=== PATIENT | male | born 1945 | race Caucasian/White ===

== ENCOUNTER 2017-04-12 00:55 | Emergency (ER) | payer OTHER ==
[2017-04-12] MEDS ORDERED: ASPIRIN 81 MG CHEW TAB ONE (00:58)
[2017-04-12] MEDS ORDERED: NITROGLYCERIN 0.4 MG TAB.SUBL SL ONE (00:58)
[2017-04-12] MEDS ORDERED: NITROGLYCERIN 0.4 MG TAB.SUBL SL PRN (01:00)
[2017-04-12] MEDS ORDERED: ASPIRIN 81 MG CHEW TAB PO ONE ×2 (01:07→06:56)
[2017-04-12 01:16] LABS: BASOPHILS % 1.4 (0.0-1.5); EOSINOPHILS % 4.3 % (0.0-6.8); MEAN CORPUSCULAR HEMOGLOBIN 31.6 pg (28.0-34.0); MEAN CORPUSCULAR VOLUME 91.8 fl (80.0-100.0); NEUTROPHILS # 2.4 # k/uL (1.4-7.7)
[2017-04-12 01:30] LABS: eGFR (African) > 60; eGFR (Non-African) > 60
[2017-04-12] MEDS ORDERED: IPRATROPIUM/ALBUTEROL SULFATE 3 ML AMPUL.NEB NEB ONE (01:53)
[2017-04-12] MEDS ORDERED: KETOROLAC TROMETHAMINE 30 MG/1ML VIAL IVP ONE (01:54)
--- NOTE | 2017-04-12 01:57 | ED Physician Documentation ---
Chest Pain - HISTORIAN Historian: patient - HPI Stated Complaint: chest pain Chief Complaint: Chest Pain Onset: minutes Timing: sudden onset Last known Well Date: 04/11/17 Last Known Well Time: 20:00 Context: rest (sitting on couch) Severity: moderate (7-8/10) Quality: stabbing Chest Pain Radiation: no radiation Chest Pain Signs/Symptoms: denies: nausea, vomiting, diaphoresis Worsened By: nothing Relieved By: nothing Further Comments: yes (71 year old male patient presents with c/o sudden onset chest pain. Patient states he was sitting on the couch when he began having chest pain and wheezing. States he attempted to take a breathing treatment, but pain became worse. Came to ER. On arrival pateint extremely anxious. BP 169/103) - ROS CONST: none (denies) MS/LYMPH: none GI/: none EYES/ENT: none SKIN/ENDO: none NEURO/PSYCH: none - PAST HX [place] risk factors: hypertension, diabetes Type 2, hyperlipidemia DVT/PE Risk Factors: none TAD/AAA risk factors: none Neuro deficit: none GI disease: none Lung disease: COPD Surgeries/Procedures: none Allergies/Adverse Reactions: Allergies Allergy/AdvReac Type Severity Reaction Status Date / Time No Known Drug Allergies Allergy Verified 04/12/17 01:35 Home Medications: Ambulatory Orders Medication Instructions Recorded Ipratropium/Albuterol Sulfate 3 ml NEB QID PRN #30 ampul.neb 07/27/15 [Duoneb] - SOCIAL HX Smoking History: cigarettes - FAMILY HX Family HX: denies: none - VITAL SIGNS Vital Signs: Vital Signs Temp Pulse Resp BP Pulse Ox 98.7 F 88 18 169/103 93 04/12/17 00:55 04/12/17 01:07 04/12/17 00:55 04/12/17 00:55 04/12/17 01:07 - REVIEWED ASSESSMENTS Nursing Assessment Reviewed: Yes Vitals Reviewed: Yes Progress - Progress Progress: 1 SL nitro given for CP and htn. Pain relieved with improved BP and 1 SL nitroglycerin. 0200 Recommended 23 observation admission for r/o KS. Patient refused admission. Risk and benefits explained. Patient agreed to stay in ER on monitor and repeat lab at 0600. 0630 Trop .06, ambulated in hallway - no chest pain, no SOB. Patient continues to refuse to stay for observation. States he has [address] Alonso. Informed consent to refuse completed. Medical release completed, will fax copy to Dr Alonso's office. - EKG/XRAY/CT EKG: rhythm (SR, rate 85) ED Results Lab/Radiology - Lab Results Lab Results: Lab Results 04/12/17 04/12/17 04/12/17 01:12 01:12 01:11 WBC 4.50 K/ul K/ul (4.00-12.00) RBC 5.60 M/ul H M/ul (3.90-5.20) Hgb 17.7 g/dL g/dL (12.0-18.0) Hct 51.4 % % (37.0-53.0) MCV 91.8 fl fl (80.0-100.0) MCH 31.6 pg pg (28.0-34.0) MCHC 34.4 g/dL g/dL (30.0-36.0) RDW 13.5 % % (11.3-14.3) Plt Count 150 K/mm3 K/mm3 (130-400) Neut % (Auto) 53.9 % % (39.0-79.0) Lymph % (Auto) 28.7 % % (16.0-50.0) [place] % (Auto) 9.0 % % (0.0-11.0) Eos % (Auto) 4.3 % % (0.0-6.8) Baso % (Auto) 1.4 (0.0-1.5) Neut # (Auto) 2.4 # k/uL # k/uL (1.4-7.7) Lymph # (Auto) 1.3 # k/uL # k/uL (0.6-4.0) [place] # (Auto) 0.4 # k/uL # k/uL (0.0-0.9) Eos # (Auto) 0.2 # k/uL # k/uL (0.0-0.6) Baso # (Auto) 0.1 # k/uL # k/uL (0.0-0.5) Reactive Lymphs % 2.7 % % (0.0-5.0) Reactive Lymphs # 0.1 # k/uL # k/uL (0.0-0.8) Sodium 140 mmol/L mmol/L (136-145) Potassium 4.1 mmol/L mmol/L (3.5-5.0) Chloride 105 mmol/L mmol/L (98-110) Carbon Dioxide 32 mmol/L mmol/L (20-32) BUN 18 mg/dL mg/dL (10-26) Creatinine 1.0 mg/dL mg/dL (0.4-1.5) Estimated Creat Clear 103 Est GFR ( Amer) > 60 (60 - ) Est GFR (Non-Af Amer) > 60 (60 - ) Glucose 149 mg/dL H mg/dL (70-99) Calcium 9.6 mg/dL mg/dL (8.5-10.5) Total Bilirubin 1.0 mg/dL mg/dL (0.2-1.2) AST 18 U/L U/L (0-41) ALT 18 U/L U/L (0-45) Alkaline Phosphatase 68 U/L U/L (46-116) Creatine Kinase 184 U/L U/L (0-225) Troponin I < 0.03 ng/mL L ng/mL (0.03-0.06) Total Protein 7.2 g/dL g/dL (6.0-8.5) Albumin 4.6 g/dL g/dL (3.0-5.5) - Orders Orders: ED Orders Category Date Time Status Continuous EKG monitoring Q30M Care 04/12/17 01:07 Active Continuous Pulse Oximetry Q30M Care 04/12/17 01:[address] IV Lock 1T Care 04/12/17 01:00 Active CHEST 1 VIEW [RAD] Stat Exams 04/12/17 01:07 Taken CBC/PLATELET/DIFF Routine Lab 04/12/17 01:12 Completed CMP Routine Lab 04/12/17 01:12 Completed CREATINE KINASE Routine Lab 04/12/17 01:12 Completed TROPONIN I (cTnI) Stat Lab 04/12/17 01:11 Completed Aspirin Med 04/12/17 00:58 Discontinued 324 mg .ROUTE .STK-MED ONE Aspirin Med 04/12/17 01:07 Discontinued 324 mg PO NOW ONE Ipratropium/Albuterol Sulfate [Duoneb] Med 04/12/17 01:53 Once 3 ml NEB NOW ONE Ketorolac Tromethamine [Toradol] Med 04/12/17 01:54 Once 30 mg IVP NOW ONE Nitroglycerin [Nitroquick] Med 04/12/17 00:58 Discontinued 0.4 mg SL .STK-MED ONE Nitroglycerin [Nitroquick] Med 04/12/17 01:00 Ordered 0.4 mg SL 1T PRN Oxygen Daily Oxygen 04/12/17 01:15 Ordered EKG WITH COMPARISON Stat Ther 04/12/17 01:07 Ordered Chest Pain Physical Exam - EXAM General Appearance: anxious EENT: eye inspection normal, NOLBERTO Respiratory: no resp. distress, chest non-tender, wheezes (BBS expiratory) CVS: reg. 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 Keep your appointment with Dr Alonso. Start aspirin 81mg daily. Home Medications: Ambulatory Orders Ipratropium/Albuterol Sulfate [Duoneb] 3 ml NEB QID PRN #30 ampul.neb 07/27/15 Condition: Stable Disposition: 01 HOME, SELF-CARE Decision to Admit: NO Decision Time: 06:49
--- NOTE | 2017-04-12 06:41 | Diagnostic Imaging Report ---
SCOTT HOPSON (REPAIR MILLER) - ER [facility] [address] [address] Report Submission Date: Apr 12, 2017 1:39:17 AM CDT Patient Study Name: SPRING LAIRD Date: Apr 12, 2017 1:14:01 AM CDT Modality Type: CR Gender: M Description: CHEST : 47 Institution: [facility] Physician: SCOTT HOPSON (SALINA) - ER Portable chest History: Chest pain Findings: The lungs are clear. No pleural effusions are observed. Heart size and pulmonary vascularity are normal. Osseous structures are unremarkable. Impression: Normal. Electronically signed on Apr 12, 2017 1:39:17 AM CDT by: Esequiel BENNETT
[2017-04-12 07:27] VITALS: BP 135/68
== END 2017-04-12 07:00 | disposition home or self-care (01) ==
LOC: ED 00:55
DX: R06.2 Wheezing (principal); R07.9 Chest pain, unspecified
CPT/HCPCS: 71010; 80053; 82550; 84484; 85025; 93005; J1885; 96374; 99284; S1016

== ENCOUNTER 2018-03-14 12:57 | Outpatient (CLI) | payer OTHER | END 2018-03-14 13:04 | LOC: CARD 12:57 | PROVIDERS: ATTEND Internal Medicine Cardiovascular Disease | DX: I77.810 Thoracic aortic ectasia (principal); I10 Essential (primary) hypertension; E11.9 Type 2 diabetes mellitus without complications; Z72.0 Tobacco use; E66.9 Obesity, unspecified; R94.39 Abnormal result of other cardiovascular function study; R79.89 Other specified abnormal findings of blood chemistry | CPT/HCPCS: G0463 ==

== ENCOUNTER 2018-09-13 05:53 | Emergency (ER) | payer OTHER ==
--- NOTE | 2018-09-13 06:57 | ED Physician Documentation ---
General Adult - HISTORIAN Historian: patient, spouse - HPI Stated Complaint: Elevated Blood Pressure at home Chief Complaint: General Adult Additional Information: pt watching tv at 0530 am noted 'JUST FELT BAD INSIDE". TOOK HIS BLOOD PRESSURE FOUNF 177/108. OFF LISINOPRIL 3-4 MO AGO. 'just didnt like to take meds' HE TAKES HIS BP ABOUT DAILY. 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 BP BETTER NOW AND FEELS BACK TO NORMAL Timing: better Severity: mild, moderate Further Comments: no - ROS CONST: no problems EYES/ENT: denies: problems with vision, sore throat CVS/RESP: none MS/SKIN/LYMPH: none NEURO/PSYCH: other (HAD SIMILAR EPISODE SEV MONTHS AGO FOUND HTN BUT BP ALWAYS CHECKED GOOD-TAKES DAILY-SO DC'D MEDS). denies: headache, fainting, dizziness, tingling, numbness, difficulty with speech, anxiety, depression - PAST HX Past History: hypertension Other History: none Surgeries/Procedures: none Allergies/Adverse Reactions: Allergies Allergy/AdvReac Type Severity Reaction Status Date / Time No Known Drug Allergies Allergy Verified 09/13/18 06:18 Home Medications: Ambulatory Orders Medication Instructions Recorded Metformin HCl [Metformin HCl ER] 1,000 mg PO BID 09/13/18 - SOCIAL HX Smoking History: greater than 1 pack/day Alcohol Use: occasionally Drug Use: none - FAMILY HX Family History: No - VITAL SIGNS Vital Signs: Vital Signs Temp Pulse Resp BP Pulse Ox 97.8 F 84 18 157/90 95 09/13/18 05:54 09/13/18 05:54 09/13/18 05:54 09/13/18 05:54 09/13/18 05:54 - REVIEWED ASSESSMENTS Nursing Assessment Reviewed: Yes Vitals Reviewed: Yes ED Results Lab/Radiology - Orders Orders: ED Orders Category Date Time Status EKG WITH COMPARISON Stat Ther 09/13/18 Ordered General Adult Physical Exam - PHYSICAL EXAM GENERAL APPEARANCE: FAST EXAM TOTALLY NORMAL EENT: eye inspection normal NECK: normal inspection, supple RESPIRATORY: no resp distress, chest non-tender, breath sounds normal CVS: reg rate & rhythm, heart sounds normal ABDOMEN: soft, non-tender BACK: normal inspection, no CVA tenderness, CVA tenderness (R) SKIN: warm/dry, normal color. No: cyanosis, diaphoresis, jaundice EXTREMITIES: non-tender, normal range of motion, no evidence of injury NEURO: oriented X3, motor nml, sensation nml, mood/affect nml Discharge Clincal Impression: UNCONTROLLED HTN Referrals: Karma Alonso MD [Primary Care Provider] - 2 Days Comments: WILL RESUME LISINOPRIL ANSD CHECK BP VERY OFTEN Condition: Good Disposition: 01 HOME, SELF-CARE Decision to Admit: NO Decision Time: 07:14
[2018-09-13 06:58] VITALS: BP 143/82
== END 2018-09-13 06:50 | disposition home or self-care (01) ==
LOC: ED 05:53
DX: I10 Essential (primary) hypertension (principal); Z72.0 Tobacco use
CPT/HCPCS: 99282; 99283

== ENCOUNTER 2018-10-20 13:02 | Emergency (ER) | payer OTHER ==
[2018-10-20] MEDS ORDERED: IPRATROPIUM/ALBUTEROL SULFATE 3 ML AMPUL.NEB NEB STA (13:16)
[2018-10-20] MEDS ORDERED: methylPREDNISolone SOD SUCC 125 MG/2 ML VIAL IVP ONE (13:16)
[2018-10-20 13:45] LABS: BASOPHILS % 3.9 (0.0-1.5); EOSINOPHILS % 1.6 % (0.0-6.8); MEAN CORPUSCULAR HEMOGLOBIN 32.3 pg (28.0-34.0); MONOCYTES % 6.9 % (0.0-11.0)
[2018-10-20 13:46] LABS: NEUTROPHILS # 9.6 # k/uL (1.4-7.7)
[2018-10-20] MEDS ORDERED: ALBUTEROL SULFATE 2.5 MG/3 ML AMPUL.NEB NEB ONE (13:46)
[2018-10-20 13:51] LABS: eGFR (Non-African) > 60
[2018-10-20] MEDS ORDERED: 0.9 % SODIUM CHLORIDE 1,000 ML IV ONE (14:22)
--- NOTE | 2018-10-20 14:40 | ED Physician Documentation ---
Dyspnea - HISTORIAN Historian: patient - HPI Stated Complaint: Shortness of breath Chief Complaint: Dyspnea Further Comments: yes (73 year old male patient presents with complaint of dyspnea since around 1100 this morning. States he used all of his medications this morning. Worse with exerction; was seen by his PCP yesterday - states he felt fine at that time.) - ROS CONST: no problems EYES/ENT: none GI/: none NEURO/PSYCH: denies: headache MS/SKIN/LYMPH: none - PAST HX Lung Disease: asthma, COPD PE Risk Factors: hypertension Other History: diabetes Type 2 Allergies/Adverse Reactions: Allergies Allergy/AdvReac Type Severity Reaction Status Date / Time No Known Drug Allergies Allergy Verified 09/13/18 06:18 Home Medications: Ambulatory Orders Medication Instructions Recorded Metformin HCl [Metformin HCl ER] 1,000 mg PO BID 09/13/18 - SOCIAL HX Smoking History: cigarettes - FAMILY HX Family History: other. denies: none - VITAL SIGNS Vital Signs: Vital Signs Temp Pulse Resp BP Pulse Ox 98.5 F 95 H 26 H 142/75 89 L 10/20/18 13:05 10/20/18 14:15 10/20/18 14:15 10/20/18 14:15 10/20/18 14:15 - REVIEWED ASSESSMENTS Nursing Assessment Reviewed: Yes Vitals Reviewed: Yes Progress - Progress Progress: Wheezing increased after duoneb - additional albuterol neb given. RA Sat 87- 88%; placed on 3L, sats up to 92-93% 1515 O2 removed - will discharge home if Sats remain >91% 1520 RA Sat 88-89%; O2 replaced. Discussed admission and transfer options with patient, no bed available at our facility. Patient would like transfer to [place]. 1535 Call to [place]. [address] Dominguez at [place]; awaiting transfer. ED Results Lab/Radiology - Lab Results Lab Results: Lab Results 10/20/18 10/20/18 13:30 13:30 WBC 12.50 K/ul H K/ul (4.00-12.00) RBC 5.61 M/ul H M/ul (3.90-5.20) Hgb 18.1 g/dL H g/dL (12.0-18.0) Hct 54.7 % H % (37.0-53.0) MCV 98.0 fl fl (80.0-100.0) MCH 32.3 pg pg (28.0-34.0) MCHC 33.1 g/dL g/dL (30.0-36.0) RDW 12.2 % % (11.3-14.3) Plt Count 139 K/mm3 K/mm3 (130-400) Neut % (Auto) 76.4 % % (39.0-79.0) Lymph % (Auto) 11.2 % L % (16.0-50.0) [place] % (Auto) 6.9 % % (0.0-11.0) Eos % (Auto) 1.6 % % (0.0-6.8) Baso % (Auto) 3.9 H (0.0-1.5) Neut # (Auto) 9.6 # k/uL H # k/uL (1.4-7.7) Lymph # (Auto) 1.4 # k/uL # k/uL (0.6-4.0) [place] # (Auto) 0.9 # k/uL # k/uL (0.0-0.9) Eos # (Auto) 0.2 # k/uL # k/uL (0.0-0.6) Baso # (Auto) 0.5 # k/uL # k/uL (0.0-0.5) Sodium 141 mmol/L mmol/L (136-145) Potassium 4.5 mmol/L mmol/L (3.5-5.1) Chloride 102 mmol/L mmol/L (98-107) Carbon Dioxide 29 mmol/L mmol/L (22-30) BUN 27 mg/dL H mg/dL (9-20) Creatinine 0.97 mg/dL mg/dL (0.66-1.25) Estimated Creat Clear 102 Est GFR ( Amer) > 60 (60 - ) Est GFR (Non-Af Amer) > 60 (60 - ) Glucose 164 mg/dL H mg/dL (74-106) Calcium 8.8 mg/dL mg/dL (8.4-10.2) Total Bilirubin 2.1 mg/dL H mg/dL (0.2-1.3) AST 35 U/L U/L (15-46) ALT 24 U/L U/L (13-69) Alkaline Phosphatase 56 U/L U/L (38-126) Total Protein 7.1 g/dL g/dL (6.3-8.2) Albumin 4.4 g/dL g/dL (3.5-5.0) - Orders Orders: ED Orders Category Date Time Status Continuous EKG monitoring Q30M Care 10/20/18 13:16 Active Continuous Pulse Oximetry Q30M Care 10/20/18 13:[address] IV Lock 1T Care 10/20/18 13:16 Active CHEST 2VIEW [RAD] Stat Exams 10/20/18 13:16 Taken CBC/PLATELET/DIFF Stat Lab 10/20/18 13:30 Completed CMP Stat Lab 10/20/18 13:30 Completed INFLUENZA A&B Stat Lab 10/20/18 13:45 ORD 0.9 % Sodium Chloride [Normal Saline] 1,000 ml Med 10/20/18 14:22 Discontinued IV NOW Albuterol Sulfate [Ventolin Soln] Med 10/20/18 13:46 Discontinued 2.5 mg NEB NOW ONE Ipratropium/Albuterol Sulfate [Duoneb] Med 10/20/18 13:16 Discontinued 3 ml NEB STAT STA methylPREDNISolone SOD SUCC [Solu-MEDROL] Med 10/20/18 13:16 Discontinued 125 mg IVP NOW ONE Dyspnea Physical Exam - EXAM General Appearance: no acute distress, alert EENT: eye inspection normal, ENT inspection normal, pharynx normal, no signs of dehydration, NOLBERTO, no nystagmus, TM's nml Respiratory: no resp. distress, no pain on inspiration, speaks full sentences, wheezes (bilateral, expiratory), other (tachypnea RR 32) CVS: reg. 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
[2018-10-20 17:38] VITALS: BP 143/83
--- NOTE | 2018-10-21 04:05 | Diagnostic Imaging Report ---
SCOTT GUTIERREZ (CONCRETE ENGINEERING TECHNICIAN) - ER [facility] [address] [address] Report Submission Date: Oct 20, 2018 3:00:25 PM IMPLEMENTATION LEAD Patient Study Name: SPRING LAIRD Date: Oct 20, 2018 1:24:34 PM IMPLEMENTATION LEAD Modality Type: DX Gender: M Description: CHEST 2VIEW : 47 Institution: [facility] Physician: SCOTT GUTIERREZ (CONCRETE ENGINEERING TECHNICIAN) - ER PA and lateral chest History: Short of breath PA and lateral chest dated October 20, 2018 is without prior radiographs for comparison. Heart size is normal. There is mild aortic atherosclerosis. Pulmonary vascularity is normal. No confluent infiltrate or pleural effusion is noted. Impression: No active disease. Electronically signed on Oct 20, 2018 3:00:25 PM IMPLEMENTATION LEAD by: Marija BENNETT
== END 2018-10-20 17:20 | disposition short-term general hospital (02) ==
LOC: ED 13:02
DX: J44.1 Chronic obstructive pulmonary disease with (acute) exacerbation (principal); Z72.0 Tobacco use
CPT/HCPCS: 36415; 71046; 80053; 85025; 87400; 94640; 96374; 99285; J2930; J7030; S1016

== ENCOUNTER 2019-08-23 00:42 | Observation (INO) | payer OTHER ==
[2019-08-23] MEDS ORDERED: methylPREDNISolone SOD SUCC 125 MG/2 ML VIAL IV ONE (00:54)
[2019-08-23] MEDS ORDERED: dilTIAZem HCL 25 MG/5 ML VIAL IVP ONE (00:54)
--- NOTE | 2019-08-23 01:07 | ED Physician Documentation ---
Palpitations - HISTORIAN Historian: patient - HPI Stated Complaint: heart palpitations, wheezing Chief Complaint: Palpitations Additional Information: Patient presents to ED with an 8 hour history of heart palpitations. Patient tawanda mullins he was diagnosed with atrial fibrillation about six months ago. He was prescribed Cardizem CD 120mg daily. He has taken 2 doses in the past 8 hours to try to get his heart rate to go down. He took his heart rate at home and it was 152 bpm. Patient reports a history of COPD also and states he has been wheezing more today. SaO2 upon arrival 90% on room air. He reports more wheezing that usual the past several days. Onset: hours (8) Timing: gradual onset Duration: intermittent episodes Quality: fast, pounding heart beat Associated Symptoms: denies: chills, fever, chest pain, productive cough Worsened by:: exertion - ROS CONST: no problems RESP: denies: productive cough GI/: denies: nausea MS/SKIN/LYMPH: denies: ankle swelling, calf pain EYES/ENT: none NEURO/PSYCH: denies: headache - SOCIAL HX Smoking History: cigarettes, greater than 1 pack/day Alcohol Use: none Drug Use: none - FAMILY HX Family History: none - PAST HX Cardiac Disease: denies: CAD Cardiac Rhythm Problems: A-fib Other History: COPD Surgeries/Procedures: none Allergies/Adverse Reactions: Allergies Allergy/AdvReac Type Severity Reaction Status Date / Time No Known Drug Allergies Allergy Verified 08/23/19 01:29 Home Medications: Ambulatory Orders Medication Instructions Recorded Metformin HCl [Metformin HCl ER] 1,000 mg PO BID 09/13/18 - VITAL SIGNS Vital Signs: Vital Signs Temp Pulse Resp BP Pulse Ox 99.3 F 139 H 20 136/83 94 08/23/19 00:42 08/23/19 02:30 08/23/19 00:42 08/23/19 00:42 08/23/19 02:30 - REVIEWED ASSESSMENTS Nursing Assessment Reviewed: Yes Vitals Reviewed: Yes Progress - Progress Progress: 0146 Patient reports having alcoholic beverages tonight. He reports over a pint of whiskey. 0300 Patient HR improving with IVF. Will admit for further hydration and monitor HR. I suspect his HR will normalize with hydration. - EKG/XRAY/CT Comments: 047 Afib w/RVR 149 bpm ED Results Lab/Radiology - Lab Results Lab Results: Lab Results 08/23/19 08/23/19 08/23/19 01:50 01:11 01:11 WBC RBC Hgb Hct MCV MCH MCHC RDW Plt Count Seg Neutrophils % Lymphocytes % Monocytes % Eosinophils % Basophils % Plt Morphology Comment RBC Morph Comment Sodium 143 mmol/L mmol/L (137-145) Potassium 4.2 mmol/L mmol/L (3.5-5.1) Chloride 112 mmol/L H mmol/L (98-107) Carbon Dioxide 19 mmol/L L mmol/L (22-30) Anion Gap 16.2 BUN 38 mg/dL H mg/dL (9-20) Creatinine 1.21 mg/dL mg/dL (0.66-1.25) Est GFR ( Amer) > 60 (60 - ) Est GFR (Non-Af Amer) > 60 (60 - ) Glucose 143 mg/dL H mg/dL (74-106) Calcium 8.7 mg/dL mg/dL (8.4-10.2) Total Bilirubin 0.3 mg/dL mg/dL (0.2-1.3) AST 35 U/L U/L (15-46) ALT 24 U/L U/L (4-50) Alkaline Phosphatase 59 U/L U/L (38-126) Troponin I 0.029 ng/mL ng/mL (0.012-0.034) NT-Pro-B Natriuret Pep 215.3 pg/mL H pg/mL (15.0-125.5) Total Protein 6.8 g/dL g/dL (6.3-8.2) Albumin 4.1 g/dL g/dL (3.5-5.0) Ethyl Alcohol 39.4 mg/dL H mg/dL (0.0-10.0) 08/23/19 01:11 WBC 4.60 K/ul K/ul (4.00-12.00) RBC 4.42 M/ul M/ul (3.90-5.20) Hgb 14.2 g/dL g/dL (12.0-18.0) Hct 40.7 % % (37.0-53.0) MCV 92.0 fl fl (80.0-100.0) MCH 32.0 pg pg (28.0-34.0) MCHC 34.8 g/dL g/dL (30.0-36.0) RDW 11.1 % L % (11.3-14.3) Plt Count 159 K/mm3 K/mm3 (130-400) Seg Neutrophils % 58 % % (39-79) Lymphocytes % 31 % % (16-50) Monocytes % 7 % % (0-11) Eosinophils % 4 % % (0-7) Basophils % 1 % % (0-2) Plt Morphology Comment Normal (NORMAL) RBC Morph Comment Normal (NORMAL) Sodium Potassium Chloride Carbon Dioxide Anion Gap BUN Creatinine Est GFR ( Amer) Est GFR (Non-Af Amer) Glucose Calcium Total Bilirubin AST ALT Alkaline Phosphatase Troponin I NT-Pro-B Natriuret Pep Total Protein Albumin Ethyl Alcohol - Radiology Radiology Impressions: Report Submission Date: Aug 23, 2019 2:18:22 AM FIVE PIECE EXPANSION MAKER HAND Patient Study Name: SPRING LAIRD Date: Aug 23, 2019 1:48:26 AM F[employer]IECE EXP[employer]ION MAKER HAND Modality Type: DX Gender: M Description: CHEST 1VIEW : 47 Institution: [facility] Physician: ESTRELLITA PARIKH Portable chest History: Wheezing findings: Mild left basilar reticular opacity is observed. The right lung is clear. Heart size and pulmonary vascularity are normal. There is no pleural effusion. Impression: Left basilar reticular opacity. Differential includes atelectasis, edema, and bronchitis. Electronically signed on Aug 23, 2019 2:18:22 AM FIVE PIECE EXPANSION MAKER HAND by: Esequiel Draper - Orders Orders: ED Orders Category Date Time Status Continuous EKG monitoring Q30M Care 08/23/19 00:52 Active Continuous Pulse Oximetry Q1H Care 08/23/19 01:[address] IV Lock 1T Care 08/23/19 00:52 Active CHEST 1VIEW [RAD] Stat Exams 08/23/19 Completed CHEST 2VIEW [RAD] Stat Exams 08/23/19 Stop Req ALCOHOL MEDICAL USE ONLY Stat Lab 08/23/19 01:50 Completed CBC/PLATELET/DIFF Routine Lab 08/23/19 01:11 Completed CMP Routine Lab 08/23/19 01:11 Completed NT BNP Stat Lab 08/23/19 01:11 Completed TROPONIN I Stat Lab 08/23/19 01:11 Completed 0.9 % Sodium Chloride [Normal Saline] 1,000 ml Med 08/23/19 01:46 Discontinued IV Q1H 0.9 % Sodium Chloride [Normal Saline] 1,000 ml Med 08/23/19 02:40 Active IV Q1H Digoxin [Lanoxin] Med 08/23/19 01:14 Discontinued 250 mcg IVP NOW ONE Ipratropium [place] [Atrovent INH Soln] Med 08/23/19 01:28 Discontinued 0.5 mg NEB NOW ONE Metoprolol Tartrate [Lopressor] Med 08/23/19 02:21 Discontinued 5 mg IV NOW ONE dilTIAZem HCL [Cardizem] Med 08/23/19 00:54 Discontinued 10 mg IVP STAT ONE methylPREDNISolone SOD SUCC [SOLU-Medrol] Med 08/23/19 00:54 Discontinued 125 mg IV NOW ONE Oxygen Daily Oxygen 08/23/19 01:00 Ordered EKG WITH COMPARISON Stat Ther 08/23/19 Ordered Palpitations Physical Exam - EXAM General Appearance: no distress EENT: NOLBERTO NECK: normal inspection, supple RESPIRATORY: wheezes (diffuse inspiratory/expiratory wheezing bilaterally) CVS: tachycardia ABDOMEN: soft, non-tender BACK: no CVA tenderness SKIN: warm/dry EXTREMITIES: non-tender, no edema NEURO: oriented X3, mood/affect nml Discharge Clincal Impression: Dehydration, Atrial fibrillation with RVR Acute bronchitis Qualifiers: Bronchitis organism: unspecified organism Qualified Code(s): J20.9 - Acute bronchitis, unspecified Alcohol intoxication Qualifiers: Complication of substance-induced condition: uncomplicated Qualified Code(s): F10.920 - Alcohol use, unspecified with intoxication, uncomplicated Referrals: Hansel Goldstein MD [Primary Care Provider] - 2 Days Comments: Will admit for observation to rehydrate and monitor HR. Condition: Stable Decision to Admit: NO Date of Decison to Admit: 08/23/19 Decision Time: 03:16
[2019-08-23] MEDS ORDERED: DIGOXIN 250MCG/1ML IVP ONE (01:14)
[2019-08-23] MEDS ORDERED: IPRATROPIUM BROMIDE 0.5 MG/2.5 ML AMPUL.NEB NEB ONE (01:28)
[2019-08-23 01:41] LABS: eGFR (Non-African) > 60
[2019-08-23] MEDS ORDERED: 0.9 % SODIUM CHLORIDE 1,000 ML IV ONE ×2 (01:46→02:40)
[2019-08-23 01:51] LABS: BASOPHILS % 1 % (0-2); SEGMENTED NEUTROPHILS % 58 % (39-79)
[2019-08-23] MEDS ORDERED: METOPROLOL TARTRATE 5 MG/5 ML VIAL IV ONE (02:21)
--- NOTE | 2019-08-23 02:24 | Diagnostic Imaging Report ---
PATIENT MR#: [id number] PATIENT PATIENT NAME: SPRING LAIRD DATE OF : 1945 REFERRING PHYSICIAN: Jennifer Lake EXAM DATE: 08/23/2019 ACCESSION NUMBER: [id number] EXAM DESCRIPTION: CHEST 1VIEW Portable chest History: Wheezing findings: Mild left basilar reticular opacity is observed. The right lung is clear. Heart size and pulmonary vascularity are normal. There is no pleural effusion. Impression: Left basilar reticular opacity. Differential includes atelectasis, edema, and bronchiti s. Read by: Dr. Kyree Draper Transcribed by: Transcribed Date: Electronically signed by: Dr. Kyree Draper Date signed: 08/23/2019 2:23:02 AM
[2019-08-23] MEDS ORDERED: LevoFLOXacin 500 MG TABLET ONE (03:17)
[2019-08-23 04:02] VITALS: BMI 31.7
[2019-08-23] MEDS: 0.9 % SODIUM CHLORIDE 1,000 ML IV SCH ×2 (04:05→04:40)
[2019-08-23] MEDS ORDERED: IPRATROPIUM BROMIDE 0.5 MG/2.5 ML AMPUL.NEB NEB SCH (05:00)
[2019-08-23 06:32] VITALS: BP 150/75
[2019-08-23] MEDS ORDERED: HEPARIN SODIUM 5000 UNIT/1 ML SQ SCH (09:00)
--- NOTE | 2019-08-24 07:16 | Discharge Summary ---
Discharge Summary - Discharge [facility] Admission Date: 08/23/19 Discharge Date: 08/23/19 Discharge To: Home History of Present Illness: Patient presents to ED with an 8 hour history of heart palpitations. Patient states he was diagnosed with atrial fibrillation about six months ago. He was prescribed Cardizem CD 120mg daily. He has taken 2 doses in the past 8 hours to try to get his heart rate to go down. He took his heart rate at home and it was 152 bpm. Patient reports a history of COPD also and states he has been wheezing more today. SaO2 upon arrival 90% on room air. He reports more wheezing that usual the past several days. Condition at Discharge: Stable Home Medications: Ambulatory Orders Medication Instructions Recorded Metformin HCl [Metformin HCl ER] 1,000 mg PO BID 09/13/18 Consultations this Visit: None Procedures this Visit: None Allergies/Adverse Reactions: Allergies Allergy/AdvReac Type Severity Reaction Status Date / Time No Known Drug Allergies Allergy Verified 08/23/19 01:29 Discharge Summary: Patient presents to ED with an 8 hour history of heart palpitations. Patient states he was diagnosed with atrial fibrillation about six months ago. He was prescribed Cardizem CD 120mg daily. He has taken 2 doses in the past 8 hours to try to get his heart rate to go down. He took his heart rate at home and it was 152 bpm. Patient reports a history of COPD also and states he has been wheezing more today. SaO2 upon arrival 90% on room air. He reports more wheezing that usual the past several days. Patient was given Cardizem 10mg IV x 1, Digoxin 250mcg IV x 1 and Lopressor 5 mg IV x 1 over the course of 2 hours in the ER. HR was ultimately lowered with IVF hydration. Patient was admitted for observation and monitoring. Levaquin and Solumedrol was administered for bronchitis. IVF hydration was continued. HR improved slowly with IV fluids. Patient left AMA shortly after admission.
== END 2019-08-23 05:50 | disposition left against medical advice (07) ==
LOC: ED 00:42 → SOUTH 03:14
PROVIDERS: ADMIT Physician Assistant Medical; ATTEND Physician Assistant Medical
DX: E86.0 Dehydration (principal); I48.20 Chronic atrial fibrillation, unspecified; J20.9 Acute bronchitis, unspecified; F10.920 Alcohol use, unspecified with intoxication, uncomplicated
CPT/HCPCS: 71045; 80053; 80320; 83880; 84484; 85025; 93005; 99234; G0378; J1160; J2930; J3490; J7030; G0480; S1016